=== PATIENT | male | born 1970 | race Caucasian/White ===

== ENCOUNTER 2020-10-10 15:51 | Inpatient (IN) | payer OTHER, SELFPAY ==
[~2020-10-10] VITALS: Ht 170.2 cm; Wt 74.4 kg
[2020-10-10 15:51] VITALS: BP 120/72
[2020-10-10 16:50] LABS: BASOPHILS % (AUTO) 0.1 % (0.0-2.0); HEMATOCRIT 43.5 % (36-52); HEMOGLOBIN 14.9 g/dL (12.0-18.0); LYMPHOCYTES % (AUTO) 7.9 % (20.5-51.1); MEAN CORPUSCULAR HEMOGLOBIN 33 pg (27-31); MEAN CORPUSCULAR HGB CONC 34 g/dL (33-37); MEAN CORPUSCULAR VOLUME 96.5 fL (80-94); MONOCYTES # (AUTO) 0.9 K/uL (0.8-1.0); NEUTROPHILS # (AUTO) 10.6 K/uL (1.8-7.7); PLATELET COUNT (AUTO) 280 K/uL (140-450); RED BLOOD CELL COUNT(AUTO) 4.51 MIL/uL (4.20-6.10); RED CELL DISTRIBUTION WIDTH 12.9 % (11.6-13.7); WHITE BLOOD COUNT (AUTO) 12.4 K/uL (4.8-10.8)
[2020-10-10] MEDS ORDERED: NACL 0.9% 1,000 ML IV ONE (16:50)
[2020-10-10] MEDS ORDERED: MORPHINE SULFATE 4 MG/ML SYR IVP ONE (16:50)
[2020-10-10 17:06] LABS: ALBUMIN 2.9 g/dL (3.4-5.0); ANION GAP 18.1 (8-16); CREATININE 1.3 mg/dL (0.6-1.3); POTASSIUM 3.1 mmol/L (3.5-5.1); TOTAL BILIRUBIN 0.8 mg/dL (0.0-1.0)
[2020-10-10] MEDS ORDERED: ACETAMINOPHEN 325 MG TAB PO PRN (19:35)
[2020-10-10] MEDS ORDERED: HYDROcodone/APAP 7.5/325 MG 1 TAB PO PRN (19:35)
[2020-10-10] MEDS ORDERED: ONDANSETRON 4 MG/2 ML VIAL IM/IVP PRN (19:35)
[2020-10-10] MEDS ORDERED: ALBUTEROL HFA MDI 90 MCG/ACTUATION 8 GM INH PRN (19:35)
[2020-10-10] MEDS: NACL 0.9% 1,000 ML IV SCH (19:35)
[2020-10-10] MEDS ORDERED: POTASSIUM CHLORIDE 40 MEQ, LIDOCAINE MPF 1% 25 MG in NACL 0.9% 250 ML IV PRN (19:35)
[2020-10-10] MEDS ORDERED: ZOLPIDEM 5 MG TAB PO PRN (19:35)
[2020-10-10 20:03] LABS: PROTHROMBIN TIME 10.3 secs (10.8-13.4)
[2020-10-10 20:15] LABS: CHOL/HDL RATIO 3.7 (1-4.5); FREE T4 (FREE THYROXINE) 1.26 ng/dL (0.76-1.46); PHOSPHORUS 3.7 mg/dL (2.5-4.9); THYROID STIMULATING HORMONE 0.46 uIU/mL (0.34-3.74)
[2020-10-10] MEDS ORDERED: cefTRIAXone 1,000 MG VIAL ONE (20:22)
[2020-10-10] MEDS: METOPROLOL 25 MG TAB PO SCH (20:36)
[2020-10-10] MEDS: ENOXAPARIN 80 MG/0.8 ML SYR SUBQ SCH (20:36)
[2020-10-10 20:52] LABS: APPEARANCE,URINE CLEAR (CLEAR); BILIRUBIN,URINE 1+ (NEGATIVE); BLOOD, URINE NEGATIVE (NEGATIVE); COLOR,URINE YELLOW (YELLOW); LEUKOCYTE ESTERASE ,URINE NEGATIVE (NEGATIVE); NITRITE, URINE NEGATIVE (NEGATIVE); UGLUCOSE NEGATIVE (NEGATIVE)
[2020-10-10] MEDS ORDERED: LOVENOX 1MG/KG Q12H SUBQ SCH (21:00)
[2020-10-10 21:04] LABS: BARBITURATE, URINE NEGATIVE ng/ml (NEG <=200); BENZODIAZEPINE, URINE NEGATIVE ng/mL (NEG <=200); CANNABINOID, URINE POSITIVE ng/mL (NEG <=50); COCAINE, URINE NEGATIVE ng/mL (NEG <=300); OPIATE, URINE NEGATIVE ng/mL (NEG <=2000); PHENCYCLIDINE SCREEN,URINE NEGATIVE ng/mL (NEG <=25)
[2020-10-10 21:07] LABS: RBC,URINE 0-5 /HPF (0-5)
[2020-10-11] VITALS: BP 138/81
[2020-10-11] MEDS: NITROGLYCERIN 0.4 MG TAB SL PRN (00:54)
[2020-10-11 04:00] VITALS: BP 132/88
[2020-10-11] MEDS: NACL 0.9% 1,000 ML IV SCH ×3 (04:16→20:56)
[2020-10-11 06:26] LABS: EOSINOPHILS % (AUTO) 0.1 % (0.0-4.0); HEMATOCRIT 42.3 % (36-52); HEMOGLOBIN 14.3 g/dL (12.0-18.0); LYMPHOCYTES % (AUTO) 6.6 % (20.5-51.1); MEAN CORPUSCULAR HEMOGLOBIN 33 pg (27-31); MEAN CORPUSCULAR HGB CONC 34 g/dL (33-37); MEAN CORPUSCULAR VOLUME 97.6 fL (80-94); MONOCYTES # (AUTO) 0.7 K/uL (0.8-1.0); MONOCYTES % (AUTO) 4.6 % (1.7-9.3); NEUTROPHILS # (AUTO) 13.4 K/uL (1.8-7.7); NEUTROPHILS % (AUTO) 88.7 % (42.2-75.2); PLATELET COUNT (AUTO) 243 K/uL (140-450); RED BLOOD CELL COUNT(AUTO) 4.34 MIL/uL (4.20-6.10); RED CELL DISTRIBUTION WIDTH 12.9 % (11.6-13.7); WHITE BLOOD COUNT (AUTO) 15.1 K/uL (4.8-10.8)
[2020-10-11 07:30] LABS: ALBUMIN 2.7 g/dL (3.4-5.0); ANION GAP 13.5 (8-16); CARBON DIOXIDE 30.1 mmol/L (21-32); POTASSIUM 3.6 mmol/L (3.5-5.1); TOTAL BILIRUBIN 0.8 mg/dL (0.0-1.0)
[2020-10-11 08:00] VITALS: BP 134/77
[2020-10-11] MEDS: ASCORBIC ACID 500 MG TAB PO SCH (09:00)
[2020-10-11] MEDS: lisinopriL 5 MG TAB PO SCH (09:00)
[2020-10-11] MEDS: ECOTRIN 81 MG TABEC PO SCH (09:00)
[2020-10-11] MEDS: ENOXAPARIN 80 MG/0.8 ML SYR SUBQ SCH ×2 (09:00→20:46)
[2020-10-11] MEDS: PANTOPRAZOLE 40 MG INJ VIAL IVP SCH (09:00)
[2020-10-11] MEDS: METOPROLOL 25 MG TAB PO SCH ×2 (09:00→20:45)
[2020-10-11] MEDS ORDERED: COMMUNICATION ORDER MC SCH (09:00)
[2020-10-11] MEDS: AZITHROMYCIN 250 MG TAB PO SCH (09:00)
[2020-10-11] MEDS ORDERED: remdesivir CLINICAL MONITORING 1 EA MISC MC PRN (11:25)
[2020-10-11 12:00] VITALS: BP 128/81
[2020-10-11] MEDS ORDERED: REMDESIVIR (EUA) 200 MG in NACL 0.9% 100 ML IV SCH (13:00)
[2020-10-11 16:00] VITALS: BP 132/88
[2020-10-11] MEDS: ATORVASTATIN 20 MG TAB PO SCH (17:32)
[2020-10-11] MEDS ORDERED: LORazepam 2 MG/ML VIAL IVP PRN (18:40)
[2020-10-11 20:00] VITALS: BP 128/82
[2020-10-12] VITALS: BP 117/79
[2020-10-12 04:00] VITALS: BP 122/77
[2020-10-12 07:24] LABS: HEMATOCRIT 39.9 % (36-52); HEMOGLOBIN 13.6 g/dL (12.0-18.0); MEAN CORPUSCULAR HEMOGLOBIN 33 pg (27-31); MEAN CORPUSCULAR HGB CONC 34 g/dL (33-37); MEAN CORPUSCULAR VOLUME 97.9 fL (80-94); PLATELET COUNT (AUTO) 220 K/uL (140-450); RED BLOOD CELL COUNT(AUTO) 4.08 MIL/uL (4.20-6.10); RED CELL DISTRIBUTION WIDTH 12.9 % (11.6-13.7); WHITE BLOOD COUNT (AUTO) 15.6 K/uL (4.8-10.8)
[2020-10-12 07:49] LABS: ALBUMIN 2.5 g/dL (3.4-5.0); ANION GAP 12.9 (8-16); CARBON DIOXIDE 28.3 mmol/L (21-32); CREATININE 0.9 mg/dL (0.6-1.3); POTASSIUM 3.2 mmol/L (3.5-5.1)
[2020-10-12 08:00] VITALS: BP 131/79
[2020-10-12] MEDS: ASCORBIC ACID 500 MG TAB PO SCH (09:11)
[2020-10-12] MEDS: lisinopriL 5 MG TAB PO SCH (09:12)
[2020-10-12] MEDS: METOPROLOL 25 MG TAB PO SCH ×2 (09:12→21:15)
[2020-10-12] MEDS: AZITHROMYCIN 250 MG TAB PO SCH (09:12)
[2020-10-12] MEDS: ECOTRIN 81 MG TABEC PO SCH (09:12)
[2020-10-12] MEDS: PANTOPRAZOLE 40 MG INJ VIAL IVP SCH (09:13)
[2020-10-12] MEDS: ENOXAPARIN 80 MG/0.8 ML SYR SUBQ SCH ×2 (09:14→21:19)
[2020-10-12] MEDS: NACL 0.9% 1,000 ML IV SCH ×2 (11:27→21:26)
[2020-10-12 12:00] VITALS: BP 136/82
[2020-10-12] MEDS: REMDESIVIR (EUA) 100 MG in NACL 0.9% 100 ML IV SCH (12:28)
[2020-10-12 13:28] LABS: LYMPHOCYTES % (MANUAL) 4 % (20-46); MONOCYTES % (MANUAL) 5 % (5-12)
[2020-10-12] MEDS: guaiFENesin DM 200/20 MG-10 ML 10 ML UDC PO PRN (13:59)
[2020-10-12 16:00] VITALS: BP 133/81
[2020-10-12] MEDS: ATORVASTATIN 20 MG TAB PO SCH (16:39)
[2020-10-12 20:00] VITALS: BP_SYST 133; BP_SYST 144; BP_DIAS 81; BP_DIAS 91
[2020-10-13] VITALS: BP 154/90
[2020-10-13 04:00] VITALS: BP 152/83
[2020-10-13] MEDS: NACL 0.9% 1,000 ML IV SCH ×2 (07:35→17:35)
[2020-10-13 08:00] VITALS: BP 139/81
[2020-10-13 08:06] LABS: T4 (THYROXINE) 8.5 ug/dL (4.5-12.0)
[2020-10-13] MEDS: ECOTRIN 81 MG TABEC PO SCH (08:29)
[2020-10-13] MEDS: ASCORBIC ACID 500 MG TAB PO SCH (08:29)
[2020-10-13] MEDS: lisinopriL 5 MG TAB PO SCH (08:30)
[2020-10-13] MEDS: METOPROLOL 25 MG TAB PO SCH ×2 (08:30→20:19)
[2020-10-13] MEDS: PANTOPRAZOLE 40 MG INJ VIAL IVP SCH (08:31)
[2020-10-13] MEDS: ENOXAPARIN 80 MG/0.8 ML SYR SUBQ SCH ×2 (08:32→20:20)
[2020-10-13 11:13] LABS: BASOPHILS # (AUTO) 0.1 K/uL (0.00-0.22); BASOPHILS % (AUTO) 0.6 % (0.0-2.0); HEMATOCRIT 40.7 % (36-52); HEMOGLOBIN 13.7 g/dL (12.0-18.0); LYMPHOCYTES # (AUTO) 0.3 K/uL (2.0-11.5); LYMPHOCYTES % (AUTO) 1.4 % (20.5-51.1); MEAN CORPUSCULAR HEMOGLOBIN 33 pg (27-31); MEAN CORPUSCULAR HGB CONC 34 g/dL (33-37); MEAN CORPUSCULAR VOLUME 97.6 fL (80-94); MONOCYTES # (AUTO) 0.7 K/uL (0.8-1.0); MONOCYTES % (AUTO) 3.4 % (1.7-9.3); NEUTROPHILS # (AUTO) 19.5 K/uL (1.8-7.7); NEUTROPHILS % (AUTO) 94.6 % (42.2-75.2); PLATELET COUNT (AUTO) 204 K/uL (140-450); RED BLOOD CELL COUNT(AUTO) 4.18 MIL/uL (4.20-6.10); RED CELL DISTRIBUTION WIDTH 12.8 % (11.6-13.7); WHITE BLOOD COUNT (AUTO) 20.6 K/uL (4.8-10.8)
[2020-10-13 11:28] LABS: ALBUMIN 2.6 g/dL (3.4-5.0); ANION GAP 15.6 (8-16); CARBON DIOXIDE 23.9 mmol/L (21-32); CREATININE 0.8 mg/dL (0.6-1.3); POTASSIUM 3.5 mmol/L (3.5-5.1); TOTAL BILIRUBIN 1.1 mg/dL (0.0-1.0)
[2020-10-13 12:00] VITALS: BP 132/80
[2020-10-13] MEDS: REMDESIVIR (EUA) 100 MG in NACL 0.9% 100 ML IV SCH (12:59)
[2020-10-13 16:00] VITALS: BP 135/92
[2020-10-13] MEDS: ATORVASTATIN 20 MG TAB PO SCH (16:50)
[2020-10-13 20:00] VITALS: BP 148/77
[2020-10-14] VITALS: BP 156/78
[2020-10-14] MEDS: NACL 0.9% 1,000 ML IV SCH ×2 (00:28→13:35)
[2020-10-14 04:00] VITALS: BP 154/78
[2020-10-14 08:00] VITALS: BP 121/85
[2020-10-14] MEDS: PANTOPRAZOLE 40 MG INJ VIAL IVP SCH (09:00)
[2020-10-14] MEDS: ENOXAPARIN 80 MG/0.8 ML SYR SUBQ SCH ×2 (09:18→20:42)
[2020-10-14] MEDS: ASCORBIC ACID 500 MG TAB PO SCH (09:19)
[2020-10-14] MEDS: METOPROLOL 25 MG TAB PO SCH ×2 (09:19→20:38)
[2020-10-14] MEDS: lisinopriL 5 MG TAB PO SCH (09:20)
[2020-10-14] MEDS: ECOTRIN 81 MG TABEC PO SCH (09:20)
[2020-10-14 09:30] LABS: BASOPHILS % (AUTO) 0.1 % (0.0-2.0); HEMATOCRIT 42.7 % (36-52); HEMOGLOBIN 14.5 g/dL (12.0-18.0); LYMPHOCYTES # (AUTO) 0.4 K/uL (2.0-11.5); LYMPHOCYTES % (AUTO) 2.1 % (20.5-51.1); MEAN CORPUSCULAR HEMOGLOBIN 33 pg (27-31); MEAN CORPUSCULAR HGB CONC 34 g/dL (33-37); MEAN CORPUSCULAR VOLUME 97.4 fL (80-94); MONOCYTES # (AUTO) 0.6 K/uL (0.8-1.0); NEUTROPHILS # (AUTO) 17.7 K/uL (1.8-7.7); NEUTROPHILS % (AUTO) 94.8 % (42.2-75.2); PLATELET COUNT (AUTO) 188 K/uL (140-450); RED BLOOD CELL COUNT(AUTO) 4.38 MIL/uL (4.20-6.10); RED CELL DISTRIBUTION WIDTH 12.6 % (11.6-13.7); WHITE BLOOD COUNT (AUTO) 18.7 K/uL (4.8-10.8)
[2020-10-14 09:44] LABS: ALBUMIN 2.7 g/dL (3.4-5.0); ANION GAP 20.4 (8-16); CARBON DIOXIDE 20.1 mmol/L (21-32); CREATININE 0.7 mg/dL (0.6-1.3); POTASSIUM 3.5 mmol/L (3.5-5.1); TOTAL BILIRUBIN 1.5 mg/dL (0.0-1.0)
[2020-10-14 09:52] LABS: MAGNESIUM 2.4 mg/dL (1.8-2.4); PHOSPHORUS 3.9 mg/dL (2.5-4.9)
[2020-10-14 12:00] VITALS: BP 109/75
[2020-10-14] MEDS: REMDESIVIR (EUA) 100 MG in NACL 0.9% 100 ML IV SCH (13:43)
[2020-10-14 16:00] VITALS: BP 138/82
[2020-10-14] MEDS: ATORVASTATIN 20 MG TAB PO SCH (17:14)
[2020-10-14 20:00] VITALS: BP 128/80
[2020-10-15] VITALS: BP 137/80
[2020-10-15] MEDS: NACL 0.9% 1,000 ML IV SCH ×3 (02:12→19:35)
[2020-10-15 04:00] VITALS: BP 139/95
[2020-10-15 08:00] VITALS: BP 133/73
[2020-10-15 08:42] LABS: BASOPHILS % (AUTO) 0.1 % (0.0-2.0); EOSINOPHILS # (AUTO) 0.1 K/uL (0-0.4); EOSINOPHILS % (AUTO) 0.6 % (0.0-4.0); HEMATOCRIT 41.7 % (36-52); HEMOGLOBIN 14.2 g/dL (12.0-18.0); LYMPHOCYTES # (AUTO) 0.5 K/uL (2.0-11.5); MEAN CORPUSCULAR HEMOGLOBIN 33 pg (27-31); MEAN CORPUSCULAR HGB CONC 34 g/dL (33-37); MEAN CORPUSCULAR VOLUME 97.6 fL (80-94); MONOCYTES # (AUTO) 0.4 K/uL (0.8-1.0); MONOCYTES % (AUTO) 2.4 % (1.7-9.3); NEUTROPHILS # (AUTO) 16.2 K/uL (1.8-7.7); NEUTROPHILS % (AUTO) 93.9 % (42.2-75.2); PLATELET COUNT (AUTO) 184 K/uL (140-450); RED BLOOD CELL COUNT(AUTO) 4.28 MIL/uL (4.20-6.10); RED CELL DISTRIBUTION WIDTH 12.9 % (11.6-13.7); WHITE BLOOD COUNT (AUTO) 17.3 K/uL (4.8-10.8)
[2020-10-15 09:03] LABS: ALBUMIN 2.6 g/dL (3.4-5.0); ANION GAP 15.3 (8-16); CARBON DIOXIDE 22.2 mmol/L (21-32); CREATININE 0.6 mg/dL (0.6-1.3); POTASSIUM 3.5 mmol/L (3.5-5.1); TOTAL BILIRUBIN 1.4 mg/dL (0.0-1.0)
[2020-10-15 09:06] LABS: MAGNESIUM 2.5 mg/dL (1.8-2.4); PHOSPHORUS 3.3 mg/dL (2.5-4.9)
[2020-10-15] MEDS: ECOTRIN 81 MG TABEC PO SCH (09:17)
[2020-10-15] MEDS: METOPROLOL 25 MG TAB PO SCH ×2 (09:17→20:33)
[2020-10-15] MEDS: ASCORBIC ACID 500 MG TAB PO SCH (09:18)
[2020-10-15] MEDS: ENOXAPARIN 80 MG/0.8 ML SYR SUBQ SCH ×2 (09:19→20:34)
[2020-10-15] MEDS: lisinopriL 5 MG TAB PO SCH (09:31)
[2020-10-15] MEDS: PANTOPRAZOLE 40 MG INJ VIAL IVP SCH (09:32)
[2020-10-15 12:00] VITALS: BP 123/77
[2020-10-15] MEDS: REMDESIVIR (EUA) 100 MG in NACL 0.9% 100 ML IV SCH (15:23)
[2020-10-15 16:00] VITALS: BP 119/76
[2020-10-15] MEDS: ATORVASTATIN 20 MG TAB PO SCH (17:23)
[2020-10-15] MEDS: guaiFENesin DM 200/20 MG-10 ML 10 ML UDC PO PRN (17:43)
[2020-10-15 20:00] VITALS: BP 130/78
[2020-10-16] VITALS: BP 125/85
[2020-10-16] MEDS: guaiFENesin DM 200/20 MG-10 ML 10 ML UDC PO PRN ×2 (00:06→19:47)
[2020-10-16 04:00] VITALS: BP 131/78
[2020-10-16] MEDS: NACL 0.9% 1,000 ML IV SCH ×2 (05:35→15:35)
[2020-10-16] MEDS: MORPHINE SULFATE 2 MG/ML SYR IVP PRN ×2 (06:07→23:24)
[2020-10-16 08:00] VITALS: BP 109/76
[2020-10-16 08:48] LABS: BASOPHILS % (AUTO) 0.2 % (0.0-2.0); EOSINOPHILS # (AUTO) 0.2 K/uL (0-0.4); HEMATOCRIT 42.4 % (36-52); HEMOGLOBIN 14.2 g/dL (12.0-18.0); LYMPHOCYTES # (AUTO) 0.4 K/uL (2.0-11.5); LYMPHOCYTES % (AUTO) 2.4 % (20.5-51.1); MEAN CORPUSCULAR HEMOGLOBIN 33 pg (27-31); MEAN CORPUSCULAR HGB CONC 34 g/dL (33-37); MONOCYTES # (AUTO) 0.6 K/uL (0.8-1.0); MONOCYTES % (AUTO) 3.5 % (1.7-9.3); NEUTROPHILS # (AUTO) 15.3 K/uL (1.8-7.7); NEUTROPHILS % (AUTO) 92.9 % (42.2-75.2); PLATELET COUNT (AUTO) 196 K/uL (140-450); RED BLOOD CELL COUNT(AUTO) 4.33 MIL/uL (4.20-6.10); RED CELL DISTRIBUTION WIDTH 12.9 % (11.6-13.7); WHITE BLOOD COUNT (AUTO) 16.4 K/uL (4.8-10.8)
[2020-10-16] MEDS: PANTOPRAZOLE 40 MG INJ VIAL IVP SCH (09:00)
[2020-10-16] MEDS: lisinopriL 5 MG TAB PO SCH (09:00)
[2020-10-16 09:14] LABS: ANION GAP 14.5 (8-16); CARBON DIOXIDE 23.9 mmol/L (21-32); CREATININE 0.7 mg/dL (0.6-1.3); POTASSIUM 3.4 mmol/L (3.5-5.1)
[2020-10-16] MEDS: ENOXAPARIN 80 MG/0.8 ML SYR SUBQ SCH ×2 (09:32→21:00)
[2020-10-16] MEDS: METOPROLOL 25 MG TAB PO SCH ×2 (09:34→22:18)
[2020-10-16] MEDS: ECOTRIN 81 MG TABEC PO SCH (09:34)
[2020-10-16] MEDS: ASCORBIC ACID 500 MG TAB PO SCH (09:36)
[2020-10-16 09:51] LABS: MAGNESIUM 2.4 mg/dL (1.8-2.4); PHOSPHORUS 3.3 mg/dL (2.5-4.9)
[2020-10-16 12:00] VITALS: BP 126/80
[2020-10-16 16:00] VITALS: BP 118/72
[2020-10-16] MEDS: ATORVASTATIN 20 MG TAB PO SCH (18:26)
[2020-10-17] MEDS: NACL 0.9% 1,000 ML IV SCH ×3 (01:35→21:35)
[2020-10-17] MEDS: ENOXAPARIN 80 MG/0.8 ML SYR SUBQ SCH ×3 (01:42→20:58)
[2020-10-17] MEDS: PANTOPRAZOLE 40 MG TABEC PO SCH (07:51)
[2020-10-17] MEDS: MORPHINE SULFATE 2 MG/ML SYR IVP PRN (07:52)
[2020-10-17 08:00] VITALS: BP 110/79
[2020-10-17] MEDS: guaiFENesin DM 200/20 MG-10 ML 10 ML UDC PO PRN ×3 (08:00→21:52)
[2020-10-17] MEDS: ECOTRIN 81 MG TABEC PO SCH (09:23)
[2020-10-17] MEDS: ASCORBIC ACID 500 MG TAB PO SCH (09:24)
[2020-10-17] MEDS: lisinopriL 5 MG TAB PO SCH (09:24)
[2020-10-17] MEDS: METOPROLOL 25 MG TAB PO SCH ×2 (09:25→20:57)
[2020-10-17 10:19] LABS: BASOPHILS % (AUTO) 0.2 % (0.0-2.0); EOSINOPHILS # (AUTO) 0.1 K/uL (0-0.4); EOSINOPHILS % (AUTO) 0.8 % (0.0-4.0); HEMATOCRIT 42.2 % (36-52); HEMOGLOBIN 14.4 g/dL (12.0-18.0); LYMPHOCYTES # (AUTO) 0.2 K/uL (2.0-11.5); LYMPHOCYTES % (AUTO) 1.7 % (20.5-51.1); MEAN CORPUSCULAR HEMOGLOBIN 34 pg (27-31); MEAN CORPUSCULAR HGB CONC 34 g/dL (33-37); MEAN CORPUSCULAR VOLUME 98.4 fL (80-94); MONOCYTES # (AUTO) 0.7 K/uL (0.8-1.0); MONOCYTES % (AUTO) 5.1 % (1.7-9.3); NEUTROPHILS # (AUTO) 13.5 K/uL (1.8-7.7); NEUTROPHILS % (AUTO) 92.2 % (42.2-75.2); PLATELET COUNT (AUTO) 215 K/uL (140-450); RED BLOOD CELL COUNT(AUTO) 4.29 MIL/uL (4.20-6.10); WHITE BLOOD COUNT (AUTO) 14.7 K/uL (4.8-10.8)
[2020-10-17 12:00] VITALS: BP 116/61
[2020-10-17 16:00] VITALS: BP 105/68
[2020-10-17] MEDS: ATORVASTATIN 20 MG TAB PO SCH (16:52)
[2020-10-17 20:00] VITALS: BP 125/73
[2020-10-18] VITALS: BP 122/78
[2020-10-18] MEDS: MORPHINE SULFATE 2 MG/ML SYR IVP PRN (00:39)
[2020-10-18] MEDS: guaiFENesin DM 200/20 MG-10 ML 10 ML UDC PO PRN ×2 (03:54→23:03)
[2020-10-18 04:00] VITALS: BP 108/77
[2020-10-18] MEDS: PANTOPRAZOLE 40 MG TABEC PO SCH (06:40)
[2020-10-18] MEDS: NACL 0.9% 1,000 ML IV SCH ×2 (06:46→17:59)
[2020-10-18 08:00] VITALS: BP 125/73
[2020-10-18 08:37] LABS: BASOPHILS % (AUTO) 0.2 % (0.0-2.0); EOSINOPHILS # (AUTO) 0.1 K/uL (0-0.4); EOSINOPHILS % (AUTO) 0.7 % (0.0-4.0); HEMATOCRIT 42.1 % (36-52); HEMOGLOBIN 14.1 g/dL (12.0-18.0); LYMPHOCYTES # (AUTO) 0.5 K/uL (2.0-11.5); LYMPHOCYTES % (AUTO) 2.9 % (20.5-51.1); MEAN CORPUSCULAR HEMOGLOBIN 33 pg (27-31); MEAN CORPUSCULAR HGB CONC 33 g/dL (33-37); MEAN CORPUSCULAR VOLUME 98.8 fL (80-94); MONOCYTES # (AUTO) 0.7 K/uL (0.8-1.0); MONOCYTES % (AUTO) 4.5 % (1.7-9.3); NEUTROPHILS # (AUTO) 14.5 K/uL (1.8-7.7); NEUTROPHILS % (AUTO) 91.7 % (42.2-75.2); PLATELET COUNT (AUTO) 241 K/uL (140-450); RED BLOOD CELL COUNT(AUTO) 4.26 MIL/uL (4.20-6.10); RED CELL DISTRIBUTION WIDTH 12.9 % (11.6-13.7); WHITE BLOOD COUNT (AUTO) 15.8 K/uL (4.8-10.8)
[2020-10-18] MEDS: ASCORBIC ACID 500 MG TAB PO SCH (08:58)
[2020-10-18 08:59] LABS: ALBUMIN 2.5 g/dL (3.4-5.0); ANION GAP 11.8 (8-16); ASPARTATE AMINOTRANSFERASE 41 U/L (15-37); CARBON DIOXIDE 27.1 mmol/L (21-32); CHLORIDE 99 mmol/L (98-107); CREATININE 0.7 mg/dL (0.6-1.3); GFR ARICAN-AMERICAN 154 mL/min (>90); GLUCOSE 80 mg/dL (74-106); MAGNESIUM 3.6 mg/dL (1.8-2.4); PHOSPHORUS 3.5 mg/dL (2.5-4.9); POTASSIUM 3.9 mmol/L (3.5-5.1); SODIUM SERUM 134 mmol/L (136-145); TOTAL BILIRUBIN 1.5 mg/dL (0.0-1.0); UREA NITROGEN, BLOOD 17 mg/dL (7-18)
[2020-10-18] MEDS: ECOTRIN 81 MG TABEC PO SCH (08:59)
[2020-10-18] MEDS: lisinopriL 5 MG TAB PO SCH (08:59)
[2020-10-18] MEDS: METOPROLOL 25 MG TAB PO SCH ×2 (08:59→20:28)
[2020-10-18] MEDS: ENOXAPARIN 80 MG/0.8 ML SYR SUBQ SCH ×2 (09:00→20:29)
[2020-10-18 10:34] LABS: LACTATE DEHYDROGENASE 700 U/L (85-227)
[2020-10-18 12:00] VITALS: BP 118/67
[2020-10-18 16:00] VITALS: BP 128/68
[2020-10-18] MEDS: ATORVASTATIN 20 MG TAB PO SCH (17:58)
[2020-10-18 20:00] VITALS: BP 123/79
[2020-10-18 22:48] LABS: LACTATE DEHYDROGENASE 845 U/L (85-227)
[2020-10-19] VITALS: BP 117/78
[2020-10-19] MEDS: NACL 0.9% 1,000 ML IV SCH ×2 (02:52→14:21)
[2020-10-19 04:00] VITALS: BP 108/77
[2020-10-19] MEDS: PANTOPRAZOLE 40 MG TABEC PO SCH (06:44)
[2020-10-19 08:00] VITALS: BP 125/68
[2020-10-19] MEDS: lisinopriL 5 MG TAB PO SCH (08:59)
[2020-10-19] MEDS: ASCORBIC ACID 500 MG TAB PO SCH (08:59)
[2020-10-19] MEDS: ENOXAPARIN 80 MG/0.8 ML SYR SUBQ SCH ×2 (08:59→20:40)
[2020-10-19] MEDS: METOPROLOL 25 MG TAB PO SCH ×2 (08:59→20:39)
[2020-10-19] MEDS: ECOTRIN 81 MG TABEC PO SCH (08:59)
[2020-10-19 09:45] LABS: BASOPHILS # (AUTO) 0.1 K/uL (0.00-0.22); BASOPHILS % (AUTO) 0.3 % (0.0-2.0); EOSINOPHILS # (AUTO) 0.1 K/uL (0-0.4); EOSINOPHILS % (AUTO) 0.8 % (0.0-4.0); HEMATOCRIT 43.8 % (36-52); HEMOGLOBIN 14.7 g/dL (12.0-18.0); LYMPHOCYTES # (AUTO) 0.4 K/uL (2.0-11.5); LYMPHOCYTES % (AUTO) 2.5 % (20.5-51.1); MEAN CORPUSCULAR HEMOGLOBIN 33 pg (27-31); MEAN CORPUSCULAR HGB CONC 34 g/dL (33-37); MEAN CORPUSCULAR VOLUME 99.5 fL (80-94); MONOCYTES # (AUTO) 0.9 K/uL (0.8-1.0); MONOCYTES % (AUTO) 5.6 % (1.7-9.3); NEUTROPHILS % (AUTO) 90.8 % (42.2-75.2); PLATELET COUNT (AUTO) 271 K/uL (140-450); RED BLOOD CELL COUNT(AUTO) 4.41 MIL/uL (4.20-6.10); WHITE BLOOD COUNT (AUTO) 16.5 K/uL (4.8-10.8)
[2020-10-19 10:19] LABS: ALBUMIN 2.7 g/dL (3.4-5.0); ANION GAP 16.8 (8-16); CARBON DIOXIDE 26.3 mmol/L (21-32); CREATININE 0.7 mg/dL (0.6-1.3); MAGNESIUM 2.5 mg/dL (1.8-2.4); PHOSPHORUS 3.4 mg/dL (2.5-4.9); POTASSIUM 4.1 mmol/L (3.5-5.1); TOTAL BILIRUBIN 1.3 mg/dL (0.0-1.0)
[2020-10-19 12:00] VITALS: BP 118/67
[2020-10-19 16:00] VITALS: BP 128/68
[2020-10-19] MEDS: ATORVASTATIN 20 MG TAB PO SCH (17:11)
[2020-10-19 20:00] VITALS: BP 146/62
[2020-10-19] MEDS: NITROGLYCERIN 0.4 MG TAB SL PRN (22:41)
[2020-10-20] VITALS: BP 120/71
[2020-10-20] MEDS: NACL 0.9% 1,000 ML IV SCH ×3 (01:17→23:24)
[2020-10-20] MEDS: LORazepam 0.5 MG TAB PO PRN (01:50)
[2020-10-20 04:00] VITALS: BP 121/82
[2020-10-20] MEDS: PANTOPRAZOLE 40 MG TABEC PO SCH (06:02)
[2020-10-20 08:00] VITALS: BP 129/74
[2020-10-20 08:59] LABS: BASOPHILS % (AUTO) 0.1 % (0.0-2.0); EOSINOPHILS # (AUTO) 0.1 K/uL (0-0.4); EOSINOPHILS % (AUTO) 0.7 % (0.0-4.0); HEMATOCRIT 40.7 % (36-52); HEMOGLOBIN 13.6 g/dL (12.0-18.0); LYMPHOCYTES # (AUTO) 0.5 K/uL (2.0-11.5); MEAN CORPUSCULAR HEMOGLOBIN 33 pg (27-31); MEAN CORPUSCULAR HGB CONC 33 g/dL (33-37); MEAN CORPUSCULAR VOLUME 98.6 fL (80-94); MONOCYTES # (AUTO) 0.9 K/uL (0.8-1.0); MONOCYTES % (AUTO) 5.7 % (1.7-9.3); NEUTROPHILS # (AUTO) 14.9 K/uL (1.8-7.7); NEUTROPHILS % (AUTO) 90.5 % (42.2-75.2); PLATELET COUNT (AUTO) 271 K/uL (140-450); RED BLOOD CELL COUNT(AUTO) 4.13 MIL/uL (4.20-6.10); RED CELL DISTRIBUTION WIDTH 13.1 % (11.6-13.7); WHITE BLOOD COUNT (AUTO) 16.4 K/uL (4.8-10.8)
[2020-10-20 09:01] LABS: ANION GAP 14.4 (8-16); CREATININE 0.7 mg/dL (0.6-1.3); POTASSIUM 3.4 mmol/L (3.5-5.1)
[2020-10-20] MEDS: lisinopriL 5 MG TAB PO SCH (09:50)
[2020-10-20] MEDS: ASCORBIC ACID 500 MG TAB PO SCH (09:50)
[2020-10-20] MEDS: ECOTRIN 81 MG TABEC PO SCH (09:50)
[2020-10-20] MEDS: METOPROLOL 25 MG TAB PO SCH ×2 (09:50→20:47)
[2020-10-20] MEDS: ENOXAPARIN 80 MG/0.8 ML SYR SUBQ SCH ×2 (09:52→20:49)
[2020-10-20 12:00] VITALS: BP 125/70
[2020-10-20 16:00] VITALS: BP 125/78
[2020-10-20] MEDS: ATORVASTATIN 20 MG TAB PO SCH (16:57)
[2020-10-20 20:00] VITALS: BP 140/77
[2020-10-20] MEDS: methylPREDNISolone SS 40 MG/ML VIAL IVP SCH (20:47)
[2020-10-21] VITALS: BP 122/76
[2020-10-21 04:00] VITALS: BP 147/77
[2020-10-21] MEDS: methylPREDNISolone SS 40 MG/ML VIAL IVP SCH ×3 (04:58→22:36)
[2020-10-21] MEDS: NACL 0.9% 1,000 ML IV SCH ×2 (05:35→15:08)
[2020-10-21] MEDS: PANTOPRAZOLE 40 MG TABEC PO SCH (07:02)
[2020-10-21 07:52] LABS: BASOPHILS % (AUTO) 0.3 % (0.0-2.0); HEMATOCRIT 38.8 % (36-52); HEMOGLOBIN 13.3 g/dL (12.0-18.0); LYMPHOCYTES # (AUTO) 0.3 K/uL (2.0-11.5); LYMPHOCYTES % (AUTO) 2.7 % (20.5-51.1); MEAN CORPUSCULAR HEMOGLOBIN 34 pg (27-31); MEAN CORPUSCULAR HGB CONC 34 g/dL (33-37); MEAN CORPUSCULAR VOLUME 98.9 fL (80-94); MONOCYTES # (AUTO) 0.6 K/uL (0.8-1.0); MONOCYTES % (AUTO) 5.6 % (1.7-9.3); NEUTROPHILS # (AUTO) 9.2 K/uL (1.8-7.7); NEUTROPHILS % (AUTO) 91.4 % (42.2-75.2); PLATELET COUNT (AUTO) 267 K/uL (140-450); RED BLOOD CELL COUNT(AUTO) 3.92 MIL/uL (4.20-6.10); WHITE BLOOD COUNT (AUTO) 10.1 K/uL (4.8-10.8)
[2020-10-21 08:00] VITALS: BP 134/71
[2020-10-21 08:19] LABS: ANION GAP 14.2 (8-16); CARBON DIOXIDE 25.3 mmol/L (21-32); CREATININE 0.6 mg/dL (0.6-1.3); POTASSIUM 3.5 mmol/L (3.5-5.1)
[2020-10-21] MEDS: ECOTRIN 81 MG TABEC PO SCH (10:52)
[2020-10-21] MEDS: ASCORBIC ACID 500 MG TAB PO SCH (10:52)
[2020-10-21] MEDS: METOPROLOL 25 MG TAB PO SCH ×2 (10:53→22:36)
[2020-10-21] MEDS: lisinopriL 5 MG TAB PO SCH (10:53)
[2020-10-21] MEDS: ENOXAPARIN 80 MG/0.8 ML SYR SUBQ SCH ×2 (10:55→22:36)
[2020-10-21 12:00] VITALS: BP 133/80
[2020-10-21 16:00] VITALS: BP 142/89
[2020-10-21] MEDS: LORazepam 0.5 MG TAB PO PRN (16:51)
[2020-10-21] MEDS: ATORVASTATIN 20 MG TAB PO SCH (16:52)
[2020-10-21 20:00] VITALS: BP 122/83
[2020-10-21] MEDS: guaiFENesin DM 200/20 MG-10 ML 10 ML UDC PO PRN (23:49)
[2020-10-22] VITALS: BP 123/73
[2020-10-22] MEDS: NACL 0.9% 1,000 ML IV SCH ×3 (01:35→06:54)
[2020-10-22] MEDS: PANTOPRAZOLE 40 MG TABEC PO SCH (03:37)
[2020-10-22 04:00] VITALS: BP 115/59
[2020-10-22] MEDS: methylPREDNISolone SS 40 MG/ML VIAL IVP SCH ×3 (06:00→21:04)
[2020-10-22 08:00] VITALS: BP 145/75
[2020-10-22 08:35] LABS: BASOPHILS % (AUTO) 0.3 % (0.0-2.0); HEMATOCRIT 40.3 % (36-52); HEMOGLOBIN 13.5 g/dL (12.0-18.0); LYMPHOCYTES # (AUTO) 0.3 K/uL (2.0-11.5); LYMPHOCYTES % (AUTO) 2.3 % (20.5-51.1); MEAN CORPUSCULAR HEMOGLOBIN 33 pg (27-31); MEAN CORPUSCULAR HGB CONC 33 g/dL (33-37); MEAN CORPUSCULAR VOLUME 98.8 fL (80-94); MONOCYTES # (AUTO) 0.8 K/uL (0.8-1.0); MONOCYTES % (AUTO) 6.4 % (1.7-9.3); NEUTROPHILS # (AUTO) 11.9 K/uL (1.8-7.7); PLATELET COUNT (AUTO) 305 K/uL (140-450); RED BLOOD CELL COUNT(AUTO) 4.08 MIL/uL (4.20-6.10); RED CELL DISTRIBUTION WIDTH 12.8 % (11.6-13.7); WHITE BLOOD COUNT (AUTO) 13.1 K/uL (4.8-10.8)
[2020-10-22] MEDS: ENOXAPARIN 80 MG/0.8 ML SYR SUBQ SCH ×2 (09:01→21:06)
[2020-10-22] MEDS: lisinopriL 5 MG TAB PO SCH (09:02)
[2020-10-22] MEDS: METOPROLOL 25 MG TAB PO SCH ×2 (09:03→21:05)
[2020-10-22] MEDS: ECOTRIN 81 MG TABEC PO SCH (09:03)
[2020-10-22] MEDS: ASCORBIC ACID 500 MG TAB PO SCH (09:03)
[2020-10-22 10:07] LABS: ANION GAP 12.6 (8-16); CREATININE 0.6 mg/dL (0.6-1.3); POTASSIUM 3.6 mmol/L (3.5-5.1)
[2020-10-22 12:00] VITALS: BP 135/60
[2020-10-22] MEDS: guaiFENesin DM 200/20 MG-10 ML 10 ML UDC PO PRN ×2 (12:38→21:04)
[2020-10-22 16:00] VITALS: BP 130/72
[2020-10-22] MEDS: ATORVASTATIN 20 MG TAB PO SCH (17:35)
[2020-10-22] MEDS: LORazepam 0.5 MG TAB PO PRN (17:39)
[2020-10-22 20:00] VITALS: BP 122/73
[2020-10-23] VITALS: BP 134/76
[2020-10-23 04:00] VITALS: BP 131/86
[2020-10-23] MEDS: guaiFENesin DM 200/20 MG-10 ML 10 ML UDC PO PRN ×3 (04:31→20:12)
[2020-10-23] MEDS: methylPREDNISolone SS 40 MG/ML VIAL IVP SCH ×3 (05:02→20:32)
[2020-10-23] MEDS: PANTOPRAZOLE 40 MG TABEC PO SCH (07:02)
[2020-10-23] MEDS: NACL 0.9% 1,000 ML IV SCH ×2 (07:03→17:36)
[2020-10-23 08:00] VITALS: BP 125/70
[2020-10-23 08:46] LABS: CARBON DIOXIDE 27.5 mmol/L (21-32); CREATININE 0.6 mg/dL (0.6-1.3); POTASSIUM 3.5 mmol/L (3.5-5.1)
[2020-10-23 08:50] LABS: BASOPHILS % (AUTO) 0.3 % (0.0-2.0); HEMATOCRIT 41.2 % (36-52); HEMOGLOBIN 13.9 g/dL (12.0-18.0); LYMPHOCYTES # (AUTO) 0.3 K/uL (2.0-11.5); LYMPHOCYTES % (AUTO) 2.5 % (20.5-51.1); MEAN CORPUSCULAR HEMOGLOBIN 33 pg (27-31); MEAN CORPUSCULAR HGB CONC 34 g/dL (33-37); MEAN CORPUSCULAR VOLUME 98.3 fL (80-94); MONOCYTES % (AUTO) 7.1 % (1.7-9.3); NEUTROPHILS # (AUTO) 12.4 K/uL (1.8-7.7); NEUTROPHILS % (AUTO) 90.1 % (42.2-75.2); PLATELET COUNT (AUTO) 320 K/uL (140-450); RED BLOOD CELL COUNT(AUTO) 4.19 MIL/uL (4.20-6.10); RED CELL DISTRIBUTION WIDTH 12.8 % (11.6-13.7); WHITE BLOOD COUNT (AUTO) 13.8 K/uL (4.8-10.8)
[2020-10-23] MEDS: lisinopriL 5 MG TAB PO SCH (08:55)
[2020-10-23] MEDS: ASCORBIC ACID 500 MG TAB PO SCH (08:55)
[2020-10-23] MEDS: METOPROLOL 25 MG TAB PO SCH ×2 (08:55→20:33)
[2020-10-23] MEDS: ECOTRIN 81 MG TABEC PO SCH (08:55)
[2020-10-23] MEDS: APIXABAN 2.5 MG TAB PO SCH ×2 (09:03→20:34)
[2020-10-23 12:00] VITALS: BP 126/80
[2020-10-23 16:00] VITALS: BP 124/76
[2020-10-23] MEDS: BENZONATATE 100 MG CAPLF PO PRN (16:24)
[2020-10-23] MEDS: ATORVASTATIN 20 MG TAB PO SCH (16:24)
[2020-10-23 20:00] VITALS: BP 125/78
[2020-10-24] VITALS: BP 138/70
[2020-10-24] MEDS ORDERED: FLU VACCINE QS2020-21 0.5 ML SYR IMVAC PRN (01:10)
[2020-10-24] MEDS: guaiFENesin DM 200/20 MG-10 ML 10 ML UDC PO PRN ×2 (02:26→21:21)
[2020-10-24 04:00] VITALS: BP 131/73
[2020-10-24] MEDS: NACL 0.9% 1,000 ML IV SCH ×2 (04:16→13:35)
[2020-10-24] MEDS: methylPREDNISolone SS 40 MG/ML VIAL IVP SCH ×3 (04:24→21:13)
[2020-10-24] MEDS: BENZONATATE 100 MG CAPLF PO PRN ×3 (05:12→19:27)
[2020-10-24] MEDS: PANTOPRAZOLE 40 MG TABEC PO SCH (06:43)
[2020-10-24 08:00] VITALS: BP 122/67
[2020-10-24 08:55] LABS: ANION GAP 11.6 (8-16); BASOPHILS % (AUTO) 0.1 % (0.0-2.0); CARBON DIOXIDE 30.4 mmol/L (21-32); CREATININE 0.7 mg/dL (0.6-1.3); EOSINOPHILS % (AUTO) 0.2 % (0.0-4.0); HEMATOCRIT 42.6 % (36-52); HEMOGLOBIN 14.1 g/dL (12.0-18.0); LYMPHOCYTES # (AUTO) 0.2 K/uL (2.0-11.5); LYMPHOCYTES % (AUTO) 1.7 % (20.5-51.1); MEAN CORPUSCULAR HEMOGLOBIN 33 pg (27-31); MEAN CORPUSCULAR HGB CONC 33 g/dL (33-37); MEAN CORPUSCULAR VOLUME 99.3 fL (80-94); MONOCYTES # (AUTO) 0.8 K/uL (0.8-1.0); MONOCYTES % (AUTO) 5.4 % (1.7-9.3); NEUTROPHILS # (AUTO) 13.5 K/uL (1.8-7.7); NEUTROPHILS % (AUTO) 92.6 % (42.2-75.2); PLATELET COUNT (AUTO) 307 K/uL (140-450); RED BLOOD CELL COUNT(AUTO) 4.29 MIL/uL (4.20-6.10); RED CELL DISTRIBUTION WIDTH 12.8 % (11.6-13.7); WHITE BLOOD COUNT (AUTO) 14.6 K/uL (4.8-10.8)
[2020-10-24] MEDS: ASCORBIC ACID 500 MG TAB PO SCH (08:58)
[2020-10-24] MEDS: METOPROLOL 25 MG TAB PO SCH ×2 (08:58→21:13)
[2020-10-24] MEDS: lisinopriL 5 MG TAB PO SCH (08:59)
[2020-10-24] MEDS: ECOTRIN 81 MG TABEC PO SCH (08:59)
[2020-10-24] MEDS: APIXABAN 2.5 MG TAB PO SCH ×2 (09:09→21:20)
[2020-10-24 12:00] VITALS: BP 119/79
[2020-10-24 16:00] VITALS: BP 119/76
[2020-10-24] MEDS: ATORVASTATIN 20 MG TAB PO SCH (17:02)
[2020-10-24 20:00] VITALS: BP 103/70
[2020-10-25] VITALS: BP 136/83
[2020-10-25 04:00] VITALS: BP 115/70
[2020-10-25] MEDS: NACL 0.9% 1,000 ML IV SCH ×3 (04:19→19:35)
[2020-10-25] MEDS: methylPREDNISolone SS 40 MG/ML VIAL IVP SCH ×3 (04:19→21:35)
[2020-10-25] MEDS: MORPHINE SULFATE 2 MG/ML SYR IVP PRN ×2 (04:19→12:34)
[2020-10-25] MEDS: PANTOPRAZOLE 40 MG TABEC PO SCH (06:50)
[2020-10-25 08:00] VITALS: BP 118/74
[2020-10-25 08:22] LABS: ANION GAP 10.5 (8-16); CARBON DIOXIDE 29.3 mmol/L (21-32); CREATININE 0.6 mg/dL (0.6-1.3); POTASSIUM 3.8 mmol/L (3.5-5.1)
[2020-10-25] MEDS: ASCORBIC ACID 500 MG TAB PO SCH (08:25)
[2020-10-25] MEDS: METOPROLOL 25 MG TAB PO SCH ×2 (08:25→21:28)
[2020-10-25] MEDS: ECOTRIN 81 MG TABEC PO SCH (08:25)
[2020-10-25] MEDS: APIXABAN 2.5 MG TAB PO SCH ×2 (08:26→21:29)
[2020-10-25] MEDS: lisinopriL 5 MG TAB PO SCH (08:26)
[2020-10-25 16:00] VITALS: BP 128/70
[2020-10-25] MEDS: ATORVASTATIN 20 MG TAB PO SCH (17:30)
[2020-10-25] MEDS: NITROGLYCERIN 0.4 MG TAB SL PRN (18:36)
[2020-10-25 20:00] VITALS: BP 129/81
[2020-10-25] MEDS: DOCUSATE SODIUM 100 MG GELCAP PO SCH (21:28)
[2020-10-26] VITALS: BP 108/75
[2020-10-26] MEDS: NITROGLYCERIN 0.4 MG TAB SL PRN (00:39)
[2020-10-26] MEDS: guaiFENesin DM 200/20 MG-10 ML 10 ML UDC PO PRN ×2 (01:32→11:17)
[2020-10-26 04:00] VITALS: BP 129/82
[2020-10-26] MEDS: BENZONATATE 100 MG CAPLF PO PRN ×2 (04:05→11:17)
[2020-10-26] MEDS: methylPREDNISolone SS 40 MG/ML VIAL IVP SCH ×3 (04:05→21:37)
[2020-10-26] MEDS: NACL 0.9% 1,000 ML IV SCH ×2 (06:05→16:20)
[2020-10-26] MEDS: PANTOPRAZOLE 40 MG TABEC PO SCH (06:34)
[2020-10-26 08:00] VITALS: BP 130/73
[2020-10-26] MEDS ORDERED: HYDROcodone/APAP 5/325 MG 1 TAB TAB PO PRN (08:20)
[2020-10-26] MEDS: METOPROLOL 25 MG TAB PO SCH ×2 (09:26→21:59)
[2020-10-26] MEDS: APIXABAN 2.5 MG TAB PO SCH ×2 (09:26→21:00)
[2020-10-26] MEDS: DOCUSATE SODIUM 100 MG GELCAP PO SCH ×2 (09:26→21:39)
[2020-10-26] MEDS: lisinopriL 5 MG TAB PO SCH (09:27)
[2020-10-26] MEDS: ASCORBIC ACID 500 MG TAB PO SCH (09:27)
[2020-10-26] MEDS: ECOTRIN 81 MG TABEC PO SCH (09:28)
[2020-10-26 12:00] VITALS: BP 129/78
[2020-10-26 16:00] VITALS: BP 121/74
[2020-10-26] MEDS: ATORVASTATIN 20 MG TAB PO SCH (17:24)
[2020-10-26 20:00] VITALS: BP 113/65
[2020-10-26] MEDS ORDERED: CALCIUM CARBONATE 500 MG TAB.CHEW PO PRN (23:35)
[2020-10-26] MEDS ORDERED: ACETAMINOPHEN/CODEINE 300/30MG 1 TAB PO PRN (23:35)
[2020-10-27] VITALS: BP 114/69
[2020-10-27 04:00] VITALS: BP 126/70
[2020-10-27] MEDS: PANTOPRAZOLE 40 MG TABEC PO SCH (04:16)
[2020-10-27] MEDS: NACL 0.9% 1,000 ML IV SCH ×3 (06:17→21:35)
[2020-10-27] MEDS: methylPREDNISolone SS 40 MG/ML VIAL IVP SCH ×3 (06:21→21:27)
[2020-10-27 08:00] VITALS: BP 119/78
[2020-10-27] MEDS: DOCUSATE SODIUM 100 MG GELCAP PO SCH ×2 (09:00→21:27)
[2020-10-27] MEDS: APIXABAN 2.5 MG TAB PO SCH ×2 (09:00→21:26)
[2020-10-27] MEDS: ASCORBIC ACID 500 MG TAB PO SCH (10:10)
[2020-10-27] MEDS: ECOTRIN 81 MG TABEC PO SCH (10:10)
[2020-10-27] MEDS: lisinopriL 5 MG TAB PO SCH (10:11)
[2020-10-27] MEDS: METOPROLOL 25 MG TAB PO SCH ×2 (10:11→21:27)
[2020-10-27 12:00] VITALS: BP 128/77
[2020-10-27 16:00] VITALS: BP 115/74
[2020-10-27] MEDS: ATORVASTATIN 20 MG TAB PO SCH (17:15)
[2020-10-27 20:00] VITALS: BP 126/74
[2020-10-27] MEDS: BENZONATATE 100 MG CAPLF PO PRN (21:48)
[2020-10-28] VITALS: BP 131/75
[2020-10-28] MEDS: guaiFENesin DM 200/20 MG-10 ML 10 ML UDC PO PRN ×3 (03:17→21:02)
[2020-10-28 04:00] VITALS: BP 129/72
[2020-10-28] MEDS: methylPREDNISolone SS 40 MG/ML VIAL IVP SCH ×3 (05:43→21:01)
[2020-10-28] MEDS: PANTOPRAZOLE 40 MG TABEC PO SCH (05:43)
[2020-10-28] MEDS: BENZONATATE 100 MG CAPLF PO PRN ×2 (05:55→17:48)
[2020-10-28 08:00] VITALS: BP 130/53
[2020-10-28] MEDS: DOCUSATE SODIUM 100 MG GELCAP PO SCH ×2 (09:10→20:58)
[2020-10-28] MEDS: ASCORBIC ACID 500 MG TAB PO SCH (09:11)
[2020-10-28] MEDS: ECOTRIN 81 MG TABEC PO SCH (09:11)
[2020-10-28] MEDS: lisinopriL 5 MG TAB PO SCH (09:12)
[2020-10-28] MEDS: METOPROLOL 25 MG TAB PO SCH ×2 (09:12→21:01)
[2020-10-28] MEDS: APIXABAN 2.5 MG TAB PO SCH ×2 (09:13→21:00)
[2020-10-28] MEDS: DOCUSATE SODIUM 100 MG GELCAP PO PRN (12:17)
[2020-10-28] MEDS: NACL 0.9% 1,000 ML IV SCH ×2 (15:00→17:35)
[2020-10-28 16:00] VITALS: BP 122/72
[2020-10-28] MEDS: ATORVASTATIN 20 MG TAB PO SCH (17:48)
[2020-10-28 20:00] VITALS: BP 108/60
[2020-10-29] VITALS: BP 135/86
[2020-10-29] MEDS: BENZONATATE 100 MG CAPLF PO PRN (02:10)
[2020-10-29] MEDS: NACL 0.9% 1,000 ML IV SCH ×3 (03:35→23:46)
[2020-10-29] MEDS: guaiFENesin DM 200/20 MG-10 ML 10 ML UDC PO PRN ×3 (03:45→20:11)
[2020-10-29 04:00] VITALS: BP 115/72
[2020-10-29] MEDS: methylPREDNISolone SS 40 MG/ML VIAL IVP SCH ×3 (04:56→20:08)
[2020-10-29] MEDS: PANTOPRAZOLE 40 MG TABEC PO SCH (05:59)
[2020-10-29 06:39] LABS: BASOPHILS % (AUTO) 0.1 % (0.0-2.0); EOSINOPHILS # (AUTO) 0.1 K/uL (0-0.4); EOSINOPHILS % (AUTO) 0.6 % (0.0-4.0); HEMATOCRIT 40.8 % (36-52); HEMOGLOBIN 13.5 g/dL (12.0-18.0); LYMPHOCYTES # (AUTO) 0.5 K/uL (2.0-11.5); LYMPHOCYTES % (AUTO) 2.4 % (20.5-51.1); MEAN CORPUSCULAR HEMOGLOBIN 33 pg (27-31); MEAN CORPUSCULAR HGB CONC 33 g/dL (33-37); MEAN CORPUSCULAR VOLUME 98.7 fL (80-94); NEUTROPHILS # (AUTO) 17.4 K/uL (1.8-7.7); NEUTROPHILS % (AUTO) 91.9 % (42.2-75.2); PLATELET COUNT (AUTO) 238 K/uL (140-450); RED BLOOD CELL COUNT(AUTO) 4.14 MIL/uL (4.20-6.10)
[2020-10-29 08:00] VITALS: BP 117/65
[2020-10-29] MEDS: METOPROLOL 25 MG TAB PO SCH ×2 (09:00→20:10)
[2020-10-29] MEDS: ASCORBIC ACID 500 MG TAB PO SCH (09:23)
[2020-10-29] MEDS: ECOTRIN 81 MG TABEC PO SCH (09:23)
[2020-10-29] MEDS: lisinopriL 5 MG TAB PO SCH (09:23)
[2020-10-29] MEDS: DOCUSATE SODIUM 100 MG GELCAP PO PRN (09:25)
[2020-10-29] MEDS: APIXABAN 2.5 MG TAB PO SCH ×2 (09:25→20:09)
[2020-10-29 12:00] VITALS: BP 117/78
[2020-10-29 16:00] VITALS: BP 119/66
[2020-10-29] MEDS: ATORVASTATIN 20 MG TAB PO SCH (16:25)
[2020-10-29 20:00] VITALS: BP 115/68
[2020-10-30] VITALS: BP 126/73
[2020-10-30 04:00] VITALS: BP 116/76
[2020-10-30] MEDS: methylPREDNISolone SS 40 MG/ML VIAL IVP SCH ×3 (04:40→21:41)
[2020-10-30] MEDS: guaiFENesin DM 200/20 MG-10 ML 10 ML UDC PO PRN ×3 (04:44→22:28)
[2020-10-30] MEDS: PANTOPRAZOLE 40 MG TABEC PO SCH (06:31)
[2020-10-30 07:25] LABS: EOSINOPHILS # (AUTO) 0.1 K/uL (0-0.4); EOSINOPHILS % (AUTO) 0.4 % (0.0-4.0); HEMOGLOBIN 13.3 g/dL (12.0-18.0); LYMPHOCYTES # (AUTO) 0.4 K/uL (2.0-11.5); LYMPHOCYTES % (AUTO) 2.5 % (20.5-51.1); MEAN CORPUSCULAR HEMOGLOBIN 33 pg (27-31); MEAN CORPUSCULAR HGB CONC 33 g/dL (33-37); MEAN CORPUSCULAR VOLUME 98.8 fL (80-94); MONOCYTES # (AUTO) 0.9 K/uL (0.8-1.0); MONOCYTES % (AUTO) 5.2 % (1.7-9.3); NEUTROPHILS # (AUTO) 16.4 K/uL (1.8-7.7); NEUTROPHILS % (AUTO) 91.9 % (42.2-75.2); PLATELET COUNT (AUTO) 237 K/uL (140-450); RED BLOOD CELL COUNT(AUTO) 4.04 MIL/uL (4.20-6.10); WHITE BLOOD COUNT (AUTO) 17.9 K/uL (4.8-10.8)
[2020-10-30] MEDS: ASCORBIC ACID 500 MG TAB PO SCH (09:47)
[2020-10-30] MEDS: METOPROLOL 25 MG TAB PO SCH ×2 (09:48→21:42)
[2020-10-30] MEDS: APIXABAN 2.5 MG TAB PO SCH ×2 (09:50→21:41)
[2020-10-30] MEDS: ECOTRIN 81 MG TABEC PO SCH (09:50)
[2020-10-30] MEDS: lisinopriL 5 MG TAB PO SCH (09:51)
[2020-10-30] MEDS: BENZONATATE 100 MG CAPLF PO PRN (11:12)
[2020-10-30] MEDS: NACL 0.9% 1,000 ML IV SCH ×2 (11:35→23:00)
[2020-10-30 12:00] VITALS: BP 115/69
[2020-10-30 16:00] VITALS: BP 147/84
[2020-10-30] MEDS: ATORVASTATIN 20 MG TAB PO SCH (16:15)
[2020-10-30 20:00] VITALS: BP 130/84
[2020-10-31] VITALS: BP 163/76
[2020-10-31 04:00] VITALS: BP 121/79
[2020-10-31] MEDS: methylPREDNISolone SS 40 MG/ML VIAL IVP SCH ×3 (04:44→20:52)
[2020-10-31] MEDS: guaiFENesin DM 200/20 MG-10 ML 10 ML UDC PO PRN ×4 (04:44→23:35)
[2020-10-31] MEDS: PANTOPRAZOLE 40 MG TABEC PO SCH (06:57)
[2020-10-31 08:00] VITALS: BP 121/79
[2020-10-31] MEDS: ECOTRIN 81 MG TABEC PO SCH (08:28)
[2020-10-31] MEDS: lisinopriL 5 MG TAB PO SCH (08:29)
[2020-10-31] MEDS: ASCORBIC ACID 500 MG TAB PO SCH (08:29)
[2020-10-31] MEDS: METOPROLOL 25 MG TAB PO SCH ×2 (08:29→20:54)
[2020-10-31] MEDS: APIXABAN 2.5 MG TAB PO SCH ×2 (08:32→21:13)
[2020-10-31] MEDS: BENZONATATE 100 MG CAPLF PO PRN ×2 (08:38→16:35)
[2020-10-31 12:00] VITALS: BP 124/74
[2020-10-31 16:00] VITALS: BP 122/71
[2020-10-31] MEDS: ATORVASTATIN 20 MG TAB PO SCH (16:28)
[2020-10-31] MEDS: NACL 0.9% 1,000 ML IV SCH (16:48)
[2020-10-31 20:00] VITALS: BP 134/80
[2020-11-01] VITALS: BP 115/62
[2020-11-01 04:00] VITALS: BP 121/72
[2020-11-01] MEDS: methylPREDNISolone SS 40 MG/ML VIAL IVP SCH ×3 (04:42→20:43)
[2020-11-01] MEDS: PANTOPRAZOLE 40 MG TABEC PO SCH (06:21)
[2020-11-01] MEDS: guaiFENesin DM 200/20 MG-10 ML 10 ML UDC PO PRN ×3 (06:22→18:53)
[2020-11-01 06:40] LABS: BASOPHILS % (AUTO) 0.2 % (0.0-2.0); HEMATOCRIT 41.1 % (36-52); HEMOGLOBIN 13.7 g/dL (12.0-18.0); LYMPHOCYTES # (AUTO) 0.7 K/uL (2.0-11.5); LYMPHOCYTES % (AUTO) 3.7 % (20.5-51.1); MEAN CORPUSCULAR HEMOGLOBIN 33 pg (27-31); MEAN CORPUSCULAR HGB CONC 33 g/dL (33-37); MEAN CORPUSCULAR VOLUME 98.4 fL (80-94); MONOCYTES # (AUTO) 1.2 K/uL (0.8-1.0); NEUTROPHILS # (AUTO) 17.5 K/uL (1.8-7.7); NEUTROPHILS % (AUTO) 90.1 % (42.2-75.2); PLATELET COUNT (AUTO) 255 K/uL (140-450); RED BLOOD CELL COUNT(AUTO) 4.17 MIL/uL (4.20-6.10); RED CELL DISTRIBUTION WIDTH 13.3 % (11.6-13.7); WHITE BLOOD COUNT (AUTO) 19.4 K/uL (4.8-10.8)
[2020-11-01 08:00] VITALS: BP 120/80
[2020-11-01 08:05] LABS: CARBON DIOXIDE 30.5 mmol/L (21-32); CREATININE 0.7 mg/dL (0.6-1.3); POTASSIUM 3.5 mmol/L (3.5-5.1)
[2020-11-01] MEDS: lisinopriL 5 MG TAB PO SCH (08:27)
[2020-11-01] MEDS: METOPROLOL 25 MG TAB PO SCH ×2 (08:27→20:45)
[2020-11-01] MEDS: ASCORBIC ACID 500 MG TAB PO SCH (08:27)
[2020-11-01] MEDS: ECOTRIN 81 MG TABEC PO SCH (08:27)
[2020-11-01] MEDS: APIXABAN 2.5 MG TAB PO SCH ×2 (08:32→20:44)
[2020-11-01] MEDS: BENZONATATE 100 MG CAPLF PO PRN ×2 (09:08→16:08)
[2020-11-01 12:00] VITALS: BP 119/78
[2020-11-01] MEDS: LEVOFLOXACIN 750 MG/D5W PREMIX 150 ML IV SCH (12:11)
[2020-11-01] MEDS: NACL 0.9% 1,000 ML IV SCH (12:11)
[2020-11-01 16:00] VITALS: BP 123/74
[2020-11-01] MEDS: ATORVASTATIN 20 MG TAB PO SCH (16:08)
[2020-11-01 20:00] VITALS: BP 112/64
[2020-11-01 22:32] LABS: APPEARANCE,URINE CLEAR (CLEAR); BILIRUBIN,URINE NEGATIVE (NEGATIVE); BLOOD, URINE 2+ (NEGATIVE); COLOR,URINE YELLOW (YELLOW); LEUKOCYTE ESTERASE ,URINE NEGATIVE (NEGATIVE); NITRITE, URINE NEGATIVE (NEGATIVE); UGLUCOSE NEGATIVE (NEGATIVE)
[2020-11-02] VITALS: BP 110/54
[2020-11-02] MEDS: BENZONATATE 100 MG CAPLF PO PRN ×2 (01:33→20:44)
[2020-11-02 04:00] VITALS: BP 123/73
[2020-11-02] MEDS: methylPREDNISolone SS 40 MG/ML VIAL IVP SCH ×3 (04:47→20:44)
[2020-11-02] MEDS: guaiFENesin DM 200/20 MG-10 ML 10 ML UDC PO PRN ×3 (04:47→17:13)
[2020-11-02] MEDS: PANTOPRAZOLE 40 MG TABEC PO SCH (07:38)
[2020-11-02 08:00] VITALS: BP 127/76
[2020-11-02 08:20] LABS: BASOPHILS % (AUTO) 0.1 % (0.0-2.0); HEMATOCRIT 40.3 % (36-52); HEMOGLOBIN 13.5 g/dL (12.0-18.0); LYMPHOCYTES # (AUTO) 0.7 K/uL (2.0-11.5); LYMPHOCYTES % (AUTO) 3.1 % (20.5-51.1); MEAN CORPUSCULAR HEMOGLOBIN 33 pg (27-31); MEAN CORPUSCULAR HGB CONC 34 g/dL (33-37); MEAN CORPUSCULAR VOLUME 98.1 fL (80-94); MONOCYTES # (AUTO) 1.5 K/uL (0.8-1.0); MONOCYTES % (AUTO) 6.6 % (1.7-9.3); NEUTROPHILS # (AUTO) 20.1 K/uL (1.8-7.7); NEUTROPHILS % (AUTO) 90.2 % (42.2-75.2); PLATELET COUNT (AUTO) 252 K/uL (140-450); RED CELL DISTRIBUTION WIDTH 13.5 % (11.6-13.7); WHITE BLOOD COUNT (AUTO) 22.3 K/uL (4.8-10.8)
[2020-11-02] MEDS: APIXABAN 2.5 MG TAB PO SCH ×2 (08:33→20:44)
[2020-11-02] MEDS: lisinopriL 5 MG TAB PO SCH (08:33)
[2020-11-02] MEDS: METOPROLOL 25 MG TAB PO SCH ×2 (08:33→20:44)
[2020-11-02] MEDS: ASCORBIC ACID 500 MG TAB PO SCH (08:33)
[2020-11-02] MEDS: ECOTRIN 81 MG TABEC PO SCH (08:33)
[2020-11-02] MEDS: NACL 0.9% 1,000 ML IV SCH (08:42)
[2020-11-02 09:40] LABS: ANION GAP 12.1 (8-16); CARBON DIOXIDE 27.6 mmol/L (21-32); CREATININE 0.7 mg/dL (0.6-1.3); POTASSIUM 3.7 mmol/L (3.5-5.1)
[2020-11-02] MEDS: LEVOFLOXACIN 750 MG/D5W PREMIX 150 ML IV SCH (12:20)
[2020-11-02 16:00] VITALS: BP 122/79
[2020-11-02] MEDS: ATORVASTATIN 20 MG TAB PO SCH (17:08)
[2020-11-02 20:00] VITALS: BP 124/80
[2020-11-03] MEDS: guaiFENesin DM 200/20 MG-10 ML 10 ML UDC PO PRN ×3 (00:12→21:02)
[2020-11-03 04:00] VITALS: BP 127/74
[2020-11-03] MEDS: methylPREDNISolone SS 40 MG/ML VIAL IVP SCH ×3 (04:11→21:01)
[2020-11-03] MEDS: NACL 0.9% 1,000 ML IV SCH (05:49)
[2020-11-03] MEDS: PANTOPRAZOLE 40 MG TABEC PO SCH (06:30)
[2020-11-03 08:00] VITALS: BP 117/71
[2020-11-03] MEDS: BENZONATATE 100 MG CAPLF PO PRN ×2 (08:35→16:41)
[2020-11-03] MEDS: ASCORBIC ACID 500 MG TAB PO SCH (08:35)
[2020-11-03] MEDS: ECOTRIN 81 MG TABEC PO SCH (08:35)
[2020-11-03] MEDS: lisinopriL 5 MG TAB PO SCH (08:36)
[2020-11-03] MEDS: METOPROLOL 25 MG TAB PO SCH ×2 (08:37→21:01)
[2020-11-03] MEDS: APIXABAN 2.5 MG TAB PO SCH ×2 (08:39→21:02)
[2020-11-03 09:26] LABS: BASOPHILS % (AUTO) 0.2 % (0.0-2.0); HEMATOCRIT 41.5 % (36-52); HEMOGLOBIN 13.9 g/dL (12.0-18.0); LYMPHOCYTES # (AUTO) 0.6 K/uL (2.0-11.5); LYMPHOCYTES % (AUTO) 2.5 % (20.5-51.1); MEAN CORPUSCULAR HEMOGLOBIN 33 pg (27-31); MEAN CORPUSCULAR HGB CONC 34 g/dL (33-37); MEAN CORPUSCULAR VOLUME 98.5 fL (80-94); MONOCYTES # (AUTO) 0.9 K/uL (0.8-1.0); MONOCYTES % (AUTO) 3.8 % (1.7-9.3); NEUTROPHILS # (AUTO) 21.8 K/uL (1.8-7.7); NEUTROPHILS % (AUTO) 93.5 % (42.2-75.2); PLATELET COUNT (AUTO) 263 K/uL (140-450); RED BLOOD CELL COUNT(AUTO) 4.21 MIL/uL (4.20-6.10); RED CELL DISTRIBUTION WIDTH 13.3 % (11.6-13.7); WHITE BLOOD COUNT (AUTO) 23.3 K/uL (4.8-10.8)
[2020-11-03 09:33] LABS: ANION GAP 14.1 (8-16); CARBON DIOXIDE 27.8 mmol/L (21-32); CREATININE 0.6 mg/dL (0.6-1.3); POTASSIUM 3.9 mmol/L (3.5-5.1)
[2020-11-03] MEDS: LEVOFLOXACIN 750 MG/D5W PREMIX 150 ML IV SCH (12:32)
[2020-11-03 16:00] VITALS: BP 118/68
[2020-11-03] MEDS: ATORVASTATIN 20 MG TAB PO SCH (16:41)
[2020-11-03 20:00] VITALS: BP 119/68
[2020-11-04] MEDS: NACL 0.9% 1,000 ML IV SCH (01:50)
[2020-11-04] MEDS: BENZONATATE 100 MG CAPLF PO PRN (03:04)
[2020-11-04 04:00] VITALS: BP 117/75
[2020-11-04] MEDS: methylPREDNISolone SS 40 MG/ML VIAL IVP SCH (04:35)
[2020-11-04] MEDS: guaiFENesin DM 200/20 MG-10 ML 10 ML UDC PO PRN (05:22)
[2020-11-04] MEDS: PANTOPRAZOLE 40 MG TABEC PO SCH (06:34)
[2020-11-04 06:57] LABS: BASOPHILS % (AUTO) 0.1 % (0.0-2.0); HEMOGLOBIN 13.3 g/dL (12.0-18.0); LYMPHOCYTES # (AUTO) 0.5 K/uL (2.0-11.5); LYMPHOCYTES % (AUTO) 2.1 % (20.5-51.1); MEAN CORPUSCULAR HEMOGLOBIN 33 pg (27-31); MEAN CORPUSCULAR HGB CONC 34 g/dL (33-37); MEAN CORPUSCULAR VOLUME 97.6 fL (80-94); NEUTROPHILS # (AUTO) 23.4 K/uL (1.8-7.7); NEUTROPHILS % (AUTO) 93.8 % (42.2-75.2); PLATELET COUNT (AUTO) 250 K/uL (140-450); RED BLOOD CELL COUNT(AUTO) 3.99 MIL/uL (4.20-6.10); RED CELL DISTRIBUTION WIDTH 13.5 % (11.6-13.7); WHITE BLOOD COUNT (AUTO) 24.9 K/uL (4.8-10.8)
[2020-11-04 07:29] LABS: ANION GAP 12.8 (8-16); CREATININE 0.7 mg/dL (0.6-1.3); POTASSIUM 3.8 mmol/L (3.5-5.1)
[2020-11-04 08:00] VITALS: BP 113/73
[2020-11-04] MEDS: METOPROLOL 25 MG TAB PO SCH (10:15)
[2020-11-04] MEDS: ASCORBIC ACID 500 MG TAB PO SCH (10:15)
[2020-11-04] MEDS: lisinopriL 5 MG TAB PO SCH (10:16)
[2020-11-04] MEDS: ECOTRIN 81 MG TABEC PO SCH (10:16)
[2020-11-04] MEDS: APIXABAN 2.5 MG TAB PO SCH (10:17)
[2020-11-04] MEDS ORDERED: ASPI-1205 PO (11:26)
[2020-11-04] MEDS ORDERED: AZIT250T3 PO (11:26)
[2020-11-04] MEDS ORDERED: DEC1 PO (11:26)
[2020-11-04] MEDS ORDERED: FLU VACCINE QS2020-21 0.5 ML SYR IMVAC PRN (13:20)
== END 2020-11-04 14:55 | disposition home or self-care (01) | DRG 871 ==
LOC: MED 15:51 → MTU 18:34
PROVIDERS: ADMIT Family Medicine; ATTEND Family Medicine
PROC: XW033E5 Introduction of Remdesivir Anti-infective into Peripheral Vein, Percutaneous Approach, New Technology Group 5 (ICD-10-PCS; principal; 2020-10-11)
PROC: 5A09357 Assistance with Respiratory Ventilation, Less than 24 Consecutive Hours, Continuous Positive Airway Pressure (ICD-10-PCS; 2020-10-11)
PROC: XW13325 Transfusion of Convalescent Plasma (Nonautologous) into Peripheral Vein, Percutaneous Approach, New Technology Group 5 (ICD-10-PCS; 2020-10-15)
PROC: 3E02340 Introduction of Influenza Vaccine into Muscle, Percutaneous Approach (ICD-10-PCS; 2020-11-04)
DX: A41.9 Sepsis, unspecified organism (principal); U07.1 COVID-19; E43 Unspecified severe protein-calorie malnutrition; J96.01 Acute respiratory failure with hypoxia; J12.82 Pneumonia due to coronavirus disease 2019; I26.99 Other pulmonary embolism without acute cor pulmonale; G93.41 Metabolic encephalopathy; N39.0 Urinary tract infection, site not specified; G93.1 Anoxic brain damage, not elsewhere classified; D68.59 Other primary thrombophilia; M94.0 Chondrocostal junction syndrome [Tietze]; E86.0 Dehydration; E83.41 Hypermagnesemia; E87.6 Hypokalemia; E78.5 Hyperlipidemia, unspecified; K76.0 Fatty (change of) liver, not elsewhere classified; Z68.25 Body mass index [BMI] 25.0-25.9, adult
CPT/HCPCS: 36415; 70450; 71045; 71275; 74018; 80048; 80053; 80305; 81001; 81003; 82150; 82550; 82553; 82948; 83036; 83605; 83615; 83690; 83735; 83880; 84100; 84436; 84439; 84443; 84479; 84484; 85025; 85379; 85610; 85651; 85730; 86140; 86886; 86900; 86901; 87040; 87081; 87086; 93005; 96374; 97110; 97112; 97116; 97161-GP; 97530; 99285; C9113; J0696; J1650; J1956; J2001; J2270; J2405; J2920; J3480; J7030; J7060; P9017; Q9967; U0003